=== PATIENT | female | born 1945 | race African-American/Black ===

== ENCOUNTER 2023-11-03 10:34 | Outpatient (CLI) | payer MEDICAID, MEDICARE, OTHER | END 2023-11-03 10:35 | disposition home or self-care (01) | LOC: NAV RAD 10:34 | PROVIDERS: ATTEND Nurse Practitioner Family | DX: M25.511 Pain in right shoulder (principal); M54.2 Cervicalgia; M19.011 Primary osteoarthritis, right shoulder; M47.812 Spondylosis without myelopathy or radiculopathy, cervical region | CPT/HCPCS: 72040 ==